=== PATIENT | female | born 1990 | race American Indian/Alaskan Native ===

== ENCOUNTER 2018-09-26 00:41 | Emergency (ER) | payer BC ==
[2018-09-26 01:03] VITALS: BP 132/91
[2018-09-26] MEDS ORDERED: ASPIRIN PO ONE (01:03)
[2018-09-26] MEDS ORDERED: IBUPROFEN PO ONE ×2 (01:25→01:27)
--- NOTE | 2018-09-26 01:42 | Emergency Department Report ---
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 It has been constant and is a pressure or heaviness sensation. She says that she feels some increased pain with respirations. She denies any nausea, vomiting, diaphoresis, back pain. No recent trauma. No recent travel, immobility. She is not a smoker. She denies any past medical history. She tried some Maalox for her symptoms thinking that it could be acid reflux but did not get much relief. - Related Data Allergies Allergy/AdvReac Type Severity Reaction Status Date / Time No Known Allergies Allergy Verified 09/26/18 01:23 Heart Score - HEART Score History: Slightly suspicious EKG: Normal Age: < 45 Risk factors: No known risk factors Troponin: < normal limit HEART Score: 0 - Critical Actions Critical Actions: 0-3 pts:0.9-1.7%risk of adverse cardiac event.Candidate for discharge ED Review of Systems ROS: Stated complaint: CHEST PAIN Other details as noted in HPI Comment: All other systems reviewed and negative Constitutional: denies: chills, fever Eyes: denies: eye pain, vision change ENT: denies: ear pain, throat pain Respiratory: denies: cough, wheezing Cardiovascular: chest pain. denies: palpitations Gastrointestinal: denies: abdominal pain, vomiting Genitourinary: denies: dysuria, discharge Musculoskeletal: denies: back pain, arthralgia Skin: denies: rash, lesions Neurological: denies: headache, weakness ED Past Medical Hx - Past Medical History Previous Medical History?: Yes Hx Renal Disease: Yes (PKD) Hx Headaches / Migraines: Yes - Surgical History Past Surgical History?: No Additional Surgical History: x 1 - Social History Smoking Status: Never Smoker Substance Use Type: Alcohol ED Physical Exam - General Limitations: No Limitations - Other Other exam information: GENERAL: The patient is well-developed well-nourished. HEENT: Normocephalic. Atraumatic. Patient has moist mucous membranes. EYES: Extraocular motions are intact. NECK: Supple. Trachea is midline. CHEST/LUNGS: Clear to auscultation. There is no respiratory distress noted. HEART/CARDIOVASCULAR: Regular. There is no tachycardia. There is no obvious murmur. ABDOMEN: There is no abdominal distention. SKIN: Skin is warm and dry. NEURO: The patient is awake, alert, and oriented. The patient is cooperative. The patient has normal speech. MUSCULOSKELETAL: There is no tenderness or deformity. There is no limitation range of motion. There is no evidence of acute injury. ED Course Vital Signs 09/26/18 01:00 Temperature 99.1 F Pulse Rate 76 Respiratory 16 Rate Blood Pressure 132/91 O2 Sat by Pulse 98 Oximetry ERNESTO score - Ernesto Score Age > 65: (0) No Aspirin use within the Past 7 Days: (1) Yes 3 or more CAD Risk Factors: (0) No 2 or more Angina events in past 24 hrs: (0) No Known CAD with more than 50% Stenosis: (0) No Elevated Cardiac Markers: (0) No ST Deviation Greater than 0.5mm: (0) No ERNESTO Score: 1 ED Medical Decision Making - Lab Data Result diagrams: 09/26/18 Unknown 09/26/18 Unknown - EKG Data -: EKG Interpreted by Me EKG shows normal: sinus rhythm, axis, intervals, QRS complexes (Q waves to the septal leads), ST-T waves Rate: normal - EKG Data When compared to previous EKG there are: previous EKG unavailable Interpretation: other (Q waves to the septal leads, otherwise no ST elevation VA) - Radiology Data Radiology results: image reviewed interpreted by me: Chest x-ray does not show any pneumothorax, pleural effusion, pneumonia or obvious focal consolidation. 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 She's been having 2 d ays of consistent left-sided chest pain/pressure. She has no risk factors including no family history of any early cardiac disease or events. EKG does not show any signs of ST elevation VA or dysrhythmia. Chest x-ray does not show any pleural effusions, pneumothorax, pneumonia, focal consolidation, or any other acute process. Labs have been unremarkable including a negative d-dimer and negative troponin. If the patient was having a heart attack or ischemic changes, I would have suspected the troponin to be elevated at this point with a 2 day history of consistent chest pain. Vital signs stable including being afebrile. She appears safe for discharge at this time but has been encouraged to see a needle punch machine operator helper for further outpatient evaluation and testing. - Differential Diagnosis VA, PE, costochondritis, GERD, pneumonia Critical Care Time: No Critical care attestation.: If time is entered above; I have spent that time in minutes in the direct care of this critically ill patient, excluding procedure time. ED Disposition Clinical Impression: Atypical chest pain Disposition: TO HOME OR SELFCARE Is pt being admited?: No Condition: Stable Instructions: Chest Pain (ED) Additional Instructions: Please follow up with your Primary Care Physician in the next few days. Please follow up with a needle punch machine operator helper as well, as soon as possible, for further evaluation of your chest pain. Return to the emergency department with any worsening of your symptoms or any acute distress. Referrals: ANDREE RIVERA MD [Primary Care Provider] - 3-5 Days [facility] [Provider Group] - 3-5 Days [facility] [Provider Group] - 3-5 Days Time of Disposition: 02:47
[2018-09-26 01:51] LABS: Basophils % (Auto) 0.5 % (0.0-1.8); Eosinophils # (Auto) 0.1 K/mm3 (0.0-0.4); Eosinophils % (Auto) 2.7 % (0.0-4.3); Hematocrit 37.2 % (30.3-42.9); Hemoglobin 12.6 gm/dl (10.1-14.3); Lymphocytes # (Auto) 1.2 K/mm3 (1.2-5.4); Lymphocytes % (Auto) 42.6 % (13.4-35.0); Mean Corpuscular HGB Conc 34 % (30-34); Mean Corpuscular Volume 99 fl (79-97); Monocytes # (Auto) 0.3 K/mm3 (0.0-0.8); Monocytes % (Auto) 11.5 % (0.0-7.3); Platelet Count 176 K/mm3 (140-440); Red Blood Count 3.78 M/mm3 (3.65-5.03); Red Cell Distribution Width 12.5 % (13.2-15.2)
[2018-09-26 02:14] LABS: BUN/Creatinine Ratio 18; Blood Urea Nitrogen 14 mg/dL (7-17); Hemolysis Index 11
--- NOTE | 2018-09-26 03:17 | XRay Report ---
FINAL REPORT EXAM: XR CHEST ROUTINE 2V HISTORY: chest pain TECHNIQUE: PA and lateral views of the chest were submitted. FINDINGS: The heart size and mediastinum appear normal. The lungs are clear. Pleural fluid is not seen. The ske letal structures do not show any acute changes. IMPRESSION: Within normal limits.
== END 2018-09-26 02:54 | disposition home or self-care (01) ==
LOC: ED 00:41 → EEVIPCON 00:41 → ED 02:54
DX: R07.89 Other chest pain (principal); G43.909 Migraine, unspecified, not intractable, without status migrainosus
CPT/HCPCS: 36415; 71046; 80048; 84484; 84703; 85025; 85379

== ENCOUNTER 2018-09-27 09:15 | Outpatient (CLI) | payer BC ==
--- NOTE | 2018-09-29 11:56 | Treadmill Report ---
EXERCISE TREADMILL TEST The patient underwent exercise treadmill test using Dave protocol on 09/27/2018. The patient's resting EKG showed normal sinus rhythm, nonspecific T-wave changes in anteroseptal leads. A single isolated ventricular ectopic beat noted. Otherwise, normal ECG. EXERCISE TEST: The patient exercised for a total of 10 minutes and 37 seconds on the Dave protocol achieving maximum a work load of 11.2 METs. Test was terminated because of fatigue. No chest pain. The patient achieved a peak heart rate of 173 beats per minute, which was 91% of predicted maximum heart rate. The patient's peak blood pressure was 143/90 mmHg. The patient's resting heart rate was 93 beats per minute and resting blood pressure was 119/75. The patient showed no significant ST-T abnormalities. A few isolated ventricular ectopic beats noted. No other arrhythmias. CONCLUSION: Good exercise capacity. Negative test for angina and ischemia. JOB# [id number] IRA/HAIM
== END 2018-09-27 09:16 | disposition home or self-care (01) ==
LOC: CARD 09:15
PROVIDERS: ATTEND Internal Medicine Cardiovascular Disease
DX: R07.89 Other chest pain (principal); Z87.718 Personal history of other specified (corrected) congenital malformations of genitourinary system; Z86.69 Personal history of other diseases of the nervous system and sense organs
CPT/HCPCS: 93017